=== PATIENT | male | born 1960 | race Caucasian/White ===

== ENCOUNTER 2023-01-01 06:51 | Emergency (ER) | payer OTHER ==
[~2023-01-01] VITALS: Ht 188 cm; Wt 100.0 kg
[2023-01-01] VITALS (11 sets, daily range): BP systolic 122–145; BP diastolic 76–94
[2023-01-01] MEDS ORDERED: PROTONIX20 M1 PO (07:19)
[2023-01-01] MEDS ORDERED: HYDROCHLOROT25 MG PO (07:19)
[2023-01-01] MEDS ORDERED: LISINOPRIL5 MG PO (07:19)
[2023-01-01] MEDS ORDERED: XARELTO STARTER1 TAB PO (09:47)
== END 2023-01-01 10:05 | disposition home or self-care (01) | DRG 301 ==
LOC: ED 06:51
DX: I82.4Z2 Acute embolism and thrombosis of unspecified deep veins of left distal lower extremity (principal); I10 Essential (primary) hypertension